=== PATIENT | female | born 1965 | race Caucasian/White ===

== ENCOUNTER 2016-07-31 19:31 | Emergency (ER) | payer OTHER ==
[~2016-07-31] VITALS: Ht 165.1 cm; Wt 100.0 kg
[~2016-07-31 19:31] MED LIST: CIPR-231 PO; ESTR2TAB2 PO; HYDR-3740 PO; LEVO25TA5 PO; MELO-253 PO; NITR100 PO; TAMS0.4C29 PO
[2016-07-31 19:39] VITALS: BP 138/88; PULSE 82; RESP 18; O2SAT 96
== END 2016-07-31 20:26 | disposition left against medical advice (07) ==
LOC: SED 19:31
DX: K59.00 Constipation, unspecified (principal); Z53.21 Procedure and treatment not carried out due to patient leaving prior to being seen by health care provider